=== PATIENT | male | born 1990 | race Caucasian/White ===

== ENCOUNTER 2023-08-20 13:51 | Emergency (ER) | payer MEDICAID, SELFPAY ==
[2023-08-20] VITALS (8 sets, daily range): BP systolic 110–157; BP diastolic 59–92; PULSE 99–131; RESP 12–28; TEMP 36.6; O2SAT 98–100; BMI 33.9; BMI 30.9
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
[2023-08-20] MEDS: LORazepam 2 MG/ML Syringe IV ×3 (13:58→14:50)
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
[2023-08-20 14:02] LABS: Absolute Neutrophil Count 6.6 X10^3/uL (2.0-7.7); Basophil# 0.06 X10^3/uL; Basophil% 0.6 % (0-1); Eosinophil# 0.08 X10^3/uL; Eosinophils% 0.7 % (0-5); Hematocrit 49.5 % (40-54); Hemoglobin 16.1 g/dL (13.0-16.5); Lymphocyte % 30.6 % (19-41); Mean Corp Hgb Conc 32.5 g/dL (32-36); Mean Corpuscular Hgb 28.4 pg (27.0-32.0); Mean Corpuscular Volume 87.3 fL (80-94); Monocyte% 4.6 % (0-10); NRBC Flagged by Analyzer 0 % (0-5); Neutrophil # 6.56 X10^3/uL (2.7-7.7); Neutrophil % 60.7 % (47-70); Platelet Count 319 K/mm3 (150-450); RBC Distribution Width CV 12.4 % (11.6-14.6); RBC Distribution Width SD 39.4 fl (35.1-43.9); Red Blood Count 5.67 M/mm3 (4.6-6.2); White Blood Count 10.8 K/mm3 (4.4-11.0)
--- NOTE | 2023-08-20 14:04 | NURSING ---
NO OLD EKGS
[2023-08-20] MEDS: Succinylcholine Chloride 200 MG/10 ML SYRINGE IV (14:08)
[2023-08-20] MEDS: Etomidate 20 MG/10 ML Vial IV (14:08)
[2023-08-20 14:20] LABS: Bacteria 0 SEEN /hpf (None Seen); Mucous, Urine 0 SEEN /hpf (<or=2+); Red Blood Cells-Urine 0 SEEN /hpf (0-5); Squamous Epithelial Cells - UA 0 SEEN /hpf (0-5); White Blood Cells 0 SEEN /hpf (0-5)
[2023-08-20] MEDS: Propofol 10MG/Ml 1,000 MG/100 ML Bottle 6.79999999999999982 MG CONT INF (14:23)
[2023-08-20 14:24] LABS: Color, Urine Yellow (Yellow); Glucose, Dipstick Normal (Normal); Urine Clarity Clear (Clear)
[2023-08-20 14:25] LABS: Ketone-Dipstick 5 mg/dl (Negative); Leukocyte Esterase-Dipstick Negative /ul (Negative); Nitrite-Dipstick Negative (Negative); Occult Blood-Urine 150 /ul (Negative); Protein-Dipstick 100 mg/dl (Negative); Urine Bilirubin Dipstick Negative (Negative); Urine Urobilinogen Normal (Normal)
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
--- NOTE | 2023-08-20 14:44 | NURSING ---
ELIAN MCBRIDE VIA THEIR TRANSPORT
--- NOTE | 2023-08-20 14:45 | NURSING ---
Propofol increased from 15 mcg/kg/min to [address] Philip d/t pt extreme agitation, thrashing.
[2023-08-20] MEDS: Morphine 4 MG/ML Syringe IV (14:50)
--- NOTE | 2023-08-20 15:06 | NURSING ---
[facility], CRITICAL CARE TRANSPORT, TEAM WILL BE HERE IN 20 TO 30 MIN NURSE TO NURSE [phone] TRAMMELL
[2023-08-20 15:10] LABS: ALB/GLOB Ratio 1.2 RATIO (0.9-2.4); AST(SGOT) 34 U/L (15-37); Alanine Aminotransfer ALT/SGPT 37 U/L (16-61); Albumin, Serum 4.2 g/dL (3.2-5.0); Alcohol, Blood (Medical)-Serum < 3.0 mg/dL; Alkaline Phosphatase 80 U/L (45-117); Anion Gap 14 (5-15); BUN 15 mg/dL (7-18); BUN/Creat Ratio 11.3 RATIO (10-20); Calcium,Total 9.6 mg/dL (8.5-10.1); Chloride 113 mmol/L (98-107); Creatinine, Serum 1.33 mg/dL (0.70-1.30); EST Glomerular Filtration Rate 67 mL/min (>60); Est Glom Filt Rate - Afr Amer 81 mL/min (>60); Estimated Creatinine Clearance 100.17 ml/min; Globulin 3.4 g/dL (2.2-4.2); Glucose 179 mg/dL (74-106); Lipase 97 U/L (13-75); Potassium 4.2 mmol/L (3.5-5.1); Protein, Total 7.6 g/dL (6.4-8.2); Sodium Level 144 mmol/L (136-145)
[2023-08-20 15:14] LABS: Amphetamine Urine VISTA NEGATIVE (<1000 ng/mL); Barbiturate Urine VISTA NEGATIVE (< 200 ng/mL); Benzodiazepine Urine VISTA POSITIVE (< 200 ng/mL); Cocaine Urine VISTA NEGATIVE (< 300 ng/mL); Ecstacy Urine VISTA NEGATIVE (< 500 ng/mL); Methadone Urine VISTA NEGATIVE (< 300 ng/mL); PCP Urine VISTA NEGATIVE (< 25 ng/mL); THC Urine VISTA POSITIVE (< 50 ng/mL); Vista UDS pH Range 5
[2023-08-20] MEDS: fentaNYL 100 MCG/2 ML Ampul 25 MCG IV (15:15)
[2023-08-20 15:45] LABS: CPK Total, Creatine Kinase 101 U/L (39-308); Triglycerides 132 mg/dL
== END 2023-08-20 16:00 | disposition short-term general hospital (02) ==
PROVIDERS: Emergency Provider Emergency Medicine; Visit Provider Emergency Medicine
DX: S01.01XA Laceration without foreign body of scalp, initial encounter (principal); V89.2XXA Person injured in unspecified motor-vehicle accident, traffic, initial encounter
CPT/HCPCS: G0463; 31500; 31720; 51702; 70450; 71260; 72125; 74177; 80053; 80307; 80320; 81001; 82550; 83690; 84478; 85025; 93005; 94002; 96374; 96375; 96376; 99252; 99285; J7030; Q9967; A4216; G0480